=== PATIENT | female | born 1985 | race Asian ===

== ENCOUNTER 2020-03-09 15:03 | Emergency (ER) | payer OTHER ==
[~2020-03-09] VITALS: Ht 152.4 cm; Wt 47.7 kg
[~2020-03-09 15:03] MED LIST: HYDR-3164 PO; METH4TAB2 PO; NAPR-514 PO; PNV1TABL25 PO; PREN1TAB85 PO
[2020-03-09] MEDS ORDERED: ACETAMINOPHEN 500 MG TABLET PO ONE (15:45)
[2020-03-09] MEDS ORDERED: ONDANSETRON ODT 4 MG TAB.RAPDIS. PO ONE (15:45)
[2020-03-09 15:54] LABS: BASO % 0 % (0-3); EOS # 0.1 x10^3/uL (0.0-0.7); EOS % 1 % (0-3); HEMATOCRIT 36.4 % (36.0-47.0); HEMOGLOBIN 12.5 g/dL (12.0-15.5); LYMPH % 10 % (24-48); MEAN CORPUSCULAR HEMOGLOBIN 28 pg (25-35); MEAN CORPUSCULAR HGB CONC 34 g/dL (31-37); MEAN CORPUSCULAR VOLUME 81 fL (79-100); MONO # 0.3 x10^3/uL (0.0-1.1); MONO % 4 % (0-9); NEUT # 7.9 x10^3/uL (1.8-7.7); NEUT % 85 % (31-73); PLATELET COUNT 195 x10^3/uL (140-400); RED BLOOD COUNT 4.47 x10^6/uL (3.50-5.40); RED CELL DISTRIBUTION WIDTH 12.9 % (11.5-14.5); WHITE BLOOD COUNT 9.2 x10^3/uL (4.0-11.0)
[2020-03-09 15:55] LABS: BILIRUBIN,URINE SMALL (NEG); CLARITY,URINE CLEAR; NITRITE,URINE NEGATIVE (NEG); PROTEIN,URINE 100 mg/dL (NEG-TRACE)
[2020-03-09 16:11] LABS: CALCIUM 8.9 mg/dL (8.5-10.1); CREATININE 0.6 mg/dL (0.6-1.0); GFR 115.9; POTASSIUM 3.4 mmol/L (3.5-5.1)
[2020-03-09 16:17] LABS: COLOR,URINE DK YELLOW
[2020-03-09 16:18] LABS: BACTERIA,URINE MODERATE /HPF (0-FEW); SQUAMOUS EPITHELIAL CELL,UR MANY /LPF
[2020-03-09 16:18] LABS: ALBUMIN 2.9 g/dL (3.4-5.0); ALBUMIN/GLOBULIN RATIO 0.6 (1.0-1.7); TOTAL BILIRUBIN 0.2 mg/dL (0.2-1.0); TOTAL PROTEIN 7.6 g/dL (6.4-8.2)
[2020-03-09 16:21] LABS: AMPHETAMINE/METHAMPHETAMINE NEG (NEG); BARBITURATES NEG (NEG); BENZODIAZEPINES NEG (NEG); CANNABINOIDS NEG (NEG); COCAINE NEG (NEG); METHADONE NEG (NEG); OPIATES NEG (NEG); PHENCYCLIDINE NEG (NEG)
--- NOTE | 2020-03-09 16:30 | RAD ---
OB < 14 WKS History: Nausea and vomiting Comparison: None. Technique: Grayscale and color Doppler imaging of the pelvis was performed using transabdominal technique. Findings: Single intrauterine gestation. Biparietal diameter 2.43 cm. Head circumference 9.25 cm. Abdominal circumference 7.94 cm. Femur length 1.29 cm. Overall estimated gestational age by ultrasound 14 weeks 1 day. heart rate 140 bpm. There is normal movement. Breech presentation. Placenta posterior wall. Cervical length 4.8 cm. IMPRESSION: 1. Single viable uterine gestational age 14 weeks 1 day with heart rate 140 bpm. Electronically signed by: Yao Quintana DO (03/09/2020 4:28 PM) [facility]
[2020-03-09] MEDS ORDERED: ONDA4TAB12 PO (17:54)
[2020-03-09] MEDS ORDERED: ACET325T9 PO (17:54)
--- NOTE | 2020-03-09 17:54 | PHYS DOC ---
Past Medical History Past Medical History: No Pertinent History Past Surgical History: No Surgical History, Appendectomy Smoking Status: Never Smoker Alcohol Use: None Drug Use: None General Adult EDM: Chief Complaint: ABDOMINAL PAIN IN HPI: HPI: Patient is a 34 year old female 4 para 3 currently 3 months presenting to the ED today complaining of 8 out of 10 generalized abdominal pain with nausea, vomiting, subjective fever that began this morning. Patient denies any vaginal discharge, denies any concerns for STDs, denies any bleeding. Patient reports following up with her [employer] doctor Naveen galaviz OB care Policy Service Coordinator line was used for [place] Citizen Review of Systems: Review of Systems: Constitutional: Reports subjective fever Eyes: Denies change in visual acuity. [] HENT: Denies nasal congestion or sore throat. [] Respiratory: Denies cough or shortness of breath. [] Cardiovascular: Denies chest pain or edema. [] GI: Reports abdominal pain in with nausea vomiting, denies bloody stools or diarrhea. [] : Denies dysuria. [] Musculoskeletal: Denies back pain or joint pain. [] Integument: Denies rash. [] Neurologic: Denies headache, focal weakness or sensory changes. [] Psychiatric: Denies depression or anxiety. [] Heart Score: Risk Factors: Risk Factors: DM, Current or recent (<one month) smoker, HTN, HLP, family history of CAD, obesity. Risk Scores: Score 0 - 3: 2.5% MACE over next 6 weeks - Discharge Home Score 4 - 6: 20.3% MACE over next 6 weeks - Admit for Clinical Observation Score 7 - 10: 72.7% MACE over next 6 weeks - Early Invasive Strategies Current Medications: Current Medications Medications (Trade) Dose Ordered Sig/Danny Start Time Stop Time Status Last Admin Dose Admin Acetaminophen (Tylenol) 1,000 mg 1X ONCE 03/09/20 15:45 03/09/20 15:46 DC 03/09/20 15:52 1,000 MG Ondansetron HCl (Zofran Odt) 4 mg 1X ONCE 03/09/20 15:45 03/09/20 15:46 DC 03/09/20 15:51 4 MG Allergies: Allergies: Allergies Coded Allergies Type Severity Reaction Last Updated Verified No Known Drug Allergies 08/23/16 No Physical Exam: PE: Constitutional: Well developed, well nourished, no acute distress, non-toxic maryjane earance. [] HENT: Normocephalic, atraumatic, bilateral external ears normal, oropharynx moist, no oral exudates, nose normal. [] Eyes: PERRLA, EOMI, conjunctiva normal, no discharge. [] Neck: Normal range of motion, no tenderness, supple, no stridor. [] Cardiovascular:Heart rate regular rhythm, no murmur [] Lungs & Thorax: Bilateral breath sounds clear to auscultation [] Abdomen: Bowel sounds normal, soft, no tenderness, no masses, no pulsatile masses. [] Skin: Warm, dry, no erythema, no rash. [] Back: No tenderness, no CVA tenderness. [] Extremities: No tenderness, no cyanosis, no clubbing, ROM intact, no edema. [] Neurologic: Alert and oriented X 3, normal motor function, normal sensory function, no focal deficits noted. [] Psychologic: Affect normal, judgement normal, mood normal. [] Current Patient Data: Labs: Laboratory Tests Test 03/09/20 15:17 03/09/20 15:22 03/09/20 15:45 Urine Collection Type Unknown Urine Color Dk yellow Urine Clarity Clear Urine pH 6.0 (<5.0-8.0) Urine Specific [place] >=1.030 (1.000-1.030) Urine Protein 100 mg/dL (NEG-TRACE) Urine Glucose (UA) Negative mg/dL (NEG) Urine Ketones (Stick) 15 mg/dL (NEG) Urine Blood Large (NEG) Urine Nitrite Negative (NEG) Urine Bilirubin Small (NEG) Urine Urobilinogen Dipstick 1.0 mg/dL (0.2 mg/dL) Urine Leukocyte Esterase Negative (NEG) Urine RBC 11-20 /HPF (0-2) Urine WBC 1-4 /HPF (0-4) Urine Squamous Epithelial Cells Many /LPF Urine Bacteria Moderate /HPF (0-FEW) Urine Mucus Marked /LPF Urine Opiates Screen Neg (NEG) Urine Methadone Screen Neg (NEG) Urine Barbiturates Neg (NEG) Urine Phencyclidine Screen Neg (NEG) Urine Amphetamine/Methamphetamine Neg (NEG) Urine Benzodiazepines Screen Neg (NEG) Urine Cocaine Screen Neg (NEG) Urine Cannabinoids Screen Neg (NEG) Urine Ethyl Alcohol Neg (NEG) POC Urine HCG, Qualitative Hcg positive (Negative) White Blood Count 9.2 x10^3/uL (4.0-11.0) Red Blood Count 4.47 x10^6/uL (3.50-5.40) Hemoglobin 12.5 g/dL (12.0-15.5) Hematocrit 36.4 % (36.0-47.0) Mean Corpuscular Volume 81 fL (79-100) Mean Corpuscular Hemoglobin 28 pg (25-35) Mean Corpuscular Hemoglobin Concent 34 g/dL (31-37) Red Cell Distribution Width 12.9 % (11.5-14.5) Platelet Count 195 x10^3/uL (140-400) Neutrophils (%) (Auto) 85 % (31-73) H Lymphocytes (%) (Auto) 10 % (24-48) L Monocytes (%) (Auto) 4 % (0-9) Eosinophils (%) (Auto) 1 % (0-3) Basophils (%) (Auto) 0 % (0-3) Neutrophils # (Auto) 7.9 x10^3/uL (1.8-7.7) H Lymphocytes # (Auto) 1.0 x10^3/uL (1.0-4.8) Monocytes # (Auto) 0.3 x10^3/uL (0.0-1.1) Eosinophils # (Auto) 0.1 x10^3/uL (0.0-0.7) Basophils # (Auto) 0.0 x10^3/uL (0.0-0.2) Maternal Serum HCG Beta Subunit 39929 mIU/mL (0-5) H Sodium Level 137 mmol/L (136-145) Potassium Level 3.4 mmol/L (3.5-5.1) L Chloride Level 101 mmol/L (98-107) Carbon Dioxide Level 27 mmol/L (21-32) Anion Gap 9 (6-14) Blood Urea Nitrogen 9 mg/dL (7-20) Creatinine 0.6 mg/dL (0.6-1.0) Estimated GFR (Cockcroft-Gault) 115.9 BUN/Creatinine Ratio 15 (6-20) Glucose Level 90 mg/dL (70-99) Calcium Level 8.9 mg/dL (8.5-10.1) Total Bilirubin 0.2 mg/dL (0.2-1.0) Aspartate Amino Transferase (AST) 15 U/L (15-37) Alanine Aminotransferase (ALT) 7 U/L (14-59) L Alkaline Phosphatase 64 U/L (46-116) Total Protein 7.6 g/dL (6.4-8.2) Albumin 2.9 g/dL (3.4-5.0) L Albumin/Globulin Ratio 0.6 (1.0-1.7) L Ethyl Alcohol Level < 10 mg/dL (0-10) Laboratory Tests 03/09/20 15:45 Laboratory Tests 03/09/20 15:45 Vital Signs: Vital Signs Date Time Temp Pulse Resp B/P (MAP) Pulse Ox O2 Delivery O2 Flow Rate FiO2 03/09/20 15:53 97.9 77 18 108/56 (73) 98 Room Air 97.9 EKG: EKG: [] Radiology/Procedures: Radiology/Procedures: []PROCEDURE: OB < 14 WKS OB < 14 WKS History: Nausea and vomiting Comparison: None. Technique: Grayscale and color Doppler imaging of the pelvis was performed using transabdominal technique. Findings: Single intrauterine gestation. Biparietal diameter 2.43 cm. Head circumference 9.25 cm. Abdominal circumference 7.94 cm. Femur length 1.29 cm. Overall estimated gestational age by ultrasound 14 weeks 1 day. heart rate 140 bpm. There is normal movement. Breech presentation. Placenta posterior wall. Cervical length 4.8 cm. IMPRESSION: 1. Single viable uterine gestational age 14 weeks 1 day with heart rate 140 bpm. Electronically signed by: Yao Quintana DO (03/09/2020 4:28 PM) [facility] DICTATED and SIGNED BY: YAO QUINTANA DO DATE: 03/09/20 6391 Course & Med Decision Making: Course & Med Decision Making Pertinent Labs and Imaging studies reviewed. (See chart for details) This is a 34-year-old female patient presenting to the ED today with abdominal pain in as well as nausea vomiting and subjective fever. Patient is afebrile in the ED. CBC, CMP with no acute findings, urine with no nitrates or leukocytes and appears grossly contaminated. OB ultrasound- single viable uterine gestational age 14 weeks 1 day with heart rate 140 bpm. Patient was discharged to home, follow-up with OB in the course of this week. Provided return precautions. Policy Service Coordinator line used for Ana Love Disclaimer: Ivan Disclaimer: This electronic medical record was generated, in whole or in part, using a voice recognition dictation system. Departure Departure Impression: Primary Impression: Abdominal pain during Qualified Codes: O26.892 - Other specified related conditions, second trimester; R10.9 - Unspecified abdominal pain Additional Impression: Nausea and vomiting during Disposition: 01 HOME, SELF-CARE Condition: STABLE Referrals: NO PCP (PCP) SUSHIL MAYER Jr, MD follow up this week Patient Instructions: Abdominal Pain During , [id number], Nausea and Vomiting, [id number] Additional Instructions: You were evaluated in the emergency room, your baby is doing okay at 14 weeks and 1 day. Take the prescribed medications as ordered. Prescriptions were sent to [facility] on [address] count includes the [facility]. Follow-up with in the course of this week Scripts Acetaminophen (TYLENOL) 325 Mg Tablet 1-2 TAB PO QID, #60 TAB 0 Refills Prov: ASIF ARMSTRONG APRN 03/09/20 Ondansetron (ONDANSETRON ODT) 4 Mg Tab.rapdis 1 TAB PO PRN Q6-8HRS, #16 TAB Prov: ASIF ARMSTRONG APRN 03/09/20 ASIF ARMSTRONG APRN March 09, 2020 17:54
[2020-03-09 18:00] VITALS: BP 106/61
== END 2020-03-09 18:08 | disposition home or self-care (01) ==
LOC: ER 15:03
DX: O21.9 Vomiting of pregnancy, unspecified (principal); R10.84 Generalized abdominal pain; R50.9 Fever, unspecified; O32.1XX0 Maternal care for breech presentation, not applicable or unspecified; Z90.89 Acquired absence of other organs; Z3A.14 14 weeks gestation of pregnancy
CPT/HCPCS: 36415; 76801; 80053; 80307; 81001; 81025; 84702; 85025; 87086; 99284; G0480; Q0162

== ENCOUNTER → 2020-04-30 | Outpatient (CLI) | payer OTHER ==
[~2020-04-30] MED LIST changes: +ACET325T9 PO; +ONDA4TAB12 PO
--- NOTE | 2020-04-30 16:44 | RAD ---
EXAM: Obstetrics sonogram. HISTORY: Size and dates assessment. TECHNIQUE: Sonographic imaging of a gravid uterus was performed. COMPARISON: 03/09/2020. FINDINGS: There is a single uterine fetus in variable presentation with a normal heart rate of 152 bpm. There is a posterior placenta without evidence of placenta previa. The amniotic fluid index is normal at 14.6 cm. The cervix is closed and measures 4.3 cm in length. There is normal body motion. The stomach, kidneys, bladder, spine, brain, facial profile, extremities and heart are unremarkable. There is a three-vessel umbilical cord with normal insertion. The biparietal diameter is 4.75 cm, corresponding with 20 weeks and 3 days. The head circumference is 18.24 cm, corresponding with 20 weeks and 4 days. The abdominal circumference is 15.76 cm, corresponding with 20 weeks and 6 days. The femoral length is 3.30 cm, corresponding with 20 weeks and 2 days. The estimated gestational age patient combined ultrasound measurements is 20 weeks and 4 days and the estimated weight is 366 g. The estimated due date is 09/13/2020. IMPRESSION: Single intrauterine fetus with normal heart rate and gestational age based on ultrasound measurements is 20 weeks and 4 days. The gestational age based on LMP is 21 weeks and 6 days. Electronically signed by: Kelly Arvizu MD (04/30/2020 4:41 PM) [id number]
== END | disposition home or self-care (01) ==
LOC: US 15:30
PROVIDERS: ATTEND Obstetrics & Gynecology
DX: O26.842 Uterine size-date discrepancy, second trimester (principal); Z3A.20 20 weeks gestation of pregnancy
CPT/HCPCS: 76805

== ENCOUNTER 2020-08-24 00:16 | Inpatient (IN) | payer OTHER ==
[~2020-08-24] VITALS: Ht 147.3 cm; Wt 56.4 kg
[2020-08-24 00:42] LABS: BILIRUBIN,URINE NEGATIVE (NEG); CLARITY,URINE CLEAR; COLOR,URINE YELLOW; NITRITE,URINE NEGATIVE (NEG); PROTEIN,URINE NEGATIVE (NEG-TRACE); UROBILINOGEN,URINE 0.2 mg/dL (0.2 mg/dL)
[2020-08-24] MEDS ORDERED: fentaNYL PF VIAL 100 MCG/2 ML VIAL IVP PRN (00:45)
[2020-08-24] MEDS ORDERED: TERBUTALINE 1 MG/ML VIAL. SQ PRN (00:45)
[2020-08-24] MEDS ORDERED: OXYTOCIN 30 UNIT/500 ML PREMIX 500 ML IV PRN ×2 (00:45→03:00)
[2020-08-24] MEDS ORDERED: 0.9 % SODIUM CHLORIDE 10 ML DISP.SYRIN. IV PRN ×2 (00:45→03:00)
[2020-08-24] MEDS ORDERED: ACETAMINOPHEN 325 MG TABLET. PO PRN (00:45)
[2020-08-24] MEDS ORDERED: MAG HYDROX/ALUMINUM HYD/SIMETH 30 ML ORAL.SUSP PO PRN ×2 (00:45→03:00)
[2020-08-24] MEDS ORDERED: CITRIC ACID/SODIUM CITRATE 30 ML SOLUTION. PO PRN (00:45)
[2020-08-24] MEDS ORDERED: ONDANSETRON PF 4 MG/2 ML VIAL. IVP PRN (00:45)
[2020-08-24 00:49] LABS: BACTERIA,URINE FEW /HPF (0-FEW); RBC,URINE 0 /HPF (0-2); WBC,URINE OCC /HPF (0-4)
[2020-08-24] MEDS ORDERED: IV RINGERS,LACTATED 1000ML 1,000 ML IV SCH (01:00)
[2020-08-24] MEDS ORDERED: PENICILLIN G K 5,000,000 UNIT in IV DEXTROSE 5% 100ML 100 ML IV ONE (01:00)
[2020-08-24] MEDS ORDERED: LIDOCAINE 1% PF 30 ML VIAL. INJ PRN (01:00)
--- NOTE | 2020-08-24 01:10 | PDOC1 ---
OB - History Hx of Present Care: Good Care Ultrasounds: Normal mid trimester US Obstetrical Complications: None Medical Complications: None Past Family/Social History * Past Medical, Surgical, Family and Obstetric Histories reviewed from chart. Blood Type: A+ Rubella: Immune RPR/VDRL: Negative GBS Status: Negative HBsAG: Negative OB - Chief Complaint & HPI Date of Admission: Date of Admission: Aug 24, 2020 at 00:16 Chief Complaint/History : 4 Para: 3 EGA: 38 Reason for admission: active labor Admission Nurse Assessment Rev: Yes OB - Admission Exam Physical Exam HEENT: Normal Heart: Regular Rate Lungs: Clear, Equal Abdomen: Gravid, Non tender, Soft Extremities: Edema Reflexes: Normal Cervical Dilatation: 8cm Effacement: 100% Station: -2 Membranes: Intact Accelerations: Accelerations Present Decelerations: No decelerations Contractions on Admission: < 5 Minutes Apart Intensity: Firm Text A: 38 wks IUP Active labor P: Admit labor management. SUSHIL MAYER Jr, MD Aug 24, 2020 01:10
[2020-08-24 01:39] LABS: BASO % 0 % (0-3); EOS # 0.2 x10^3/uL (0.0-0.7); EOS % 2 % (0-3); HEMOGLOBIN 11.1 g/dL (12.0-15.5); LYMPH # 1.9 x10^3/uL (1.0-4.8); LYMPH % 21 % (24-48); MEAN CORPUSCULAR HEMOGLOBIN 27 pg (25-35); MEAN CORPUSCULAR HGB CONC 34 g/dL (31-37); MEAN CORPUSCULAR VOLUME 80 fL (79-100); MONO # 0.6 x10^3/uL (0.0-1.1); MONO % 7 % (0-9); NEUT # 6.3 x10^3/uL (1.8-7.7); NEUT % 70 % (31-73); PLATELET COUNT 216 x10^3/uL (140-400); RED BLOOD COUNT 4.11 x10^6/uL (3.50-5.40); RED CELL DISTRIBUTION WIDTH 13.9 % (11.5-14.5); WHITE BLOOD COUNT 8.9 x10^3/uL (4.0-11.0)
--- NOTE | 2020-08-24 02:49 | PDOC ---
VAGINAL DELIVERY DATE DATE: 08/24/20 TIME: 02:48 : 4 Para: 4 EGA: 38 VAGINAL DELIVERY: VTX VACCUM ASSISTED: No PLACENTA: Spontaneous 8/9 SEX: Male WEIGHT Weight [ 7 lbs 4 oz ] Nuchal Cord: No Amniotic Fluid: Clear PAIN: Natural EPISIOTOMY: No EXTENSION: Yes (1st degree midline laceration) REPAIRED WITH 2-0 vicryl EBL 300 ml COMPLICATIONS none CONDITION pt. stable Signs of Intrauterine Infectio: None Shoulder Dystocia: No SUSHIL MAYER Jr, MD Aug 24, 2020 02:49
[2020-08-24] MEDS ORDERED: PHENYLEPH/MINERAL OIL/PETROLAT RECTAL OINTMENT TUBE. RC PRN (03:00)
[2020-08-24] MEDS ORDERED: MAGNESIUM HYDROXIDE 2,400 MG/30 ML ORAL.SUSP. PO PRN (03:00)
[2020-08-24] MEDS ORDERED: TDaP (Adacel) per PROTOCOL. MC PRN (03:00)
[2020-08-24] MEDS ORDERED: HYDROCORTISONE 1% TOPICAL OINTMENT 30GM TUBE. TP PRN (03:00)
[2020-08-24] MEDS ORDERED: ZOLPIDEM 5 MG TABLET. PO PRN (03:00)
[2020-08-24] MEDS ORDERED: DOCUSATE SODIUM 100 MG CAPSULE. PO PRN (03:00)
[2020-08-24] MEDS ORDERED: IBUPROFEN 400 MG TABLET. PO PRN (03:00)
[2020-08-24] MEDS ORDERED: MMR per PROTOCOL. MC PRN (03:00)
[2020-08-24] MEDS ORDERED: diphenhydrAMINE HCL 25 MG CAPSULE PO PRN (03:00)
[2020-08-24] MEDS ORDERED: oxyCODONE/APAP 5/325 1 TAB TABLET PO PRN (03:00)
[2020-08-24] MEDS ORDERED: SIMETHICONE 80 MG TAB.CHEW PO PRN (03:00)
[2020-08-24] MEDS: IBUPROFEN 400 MG TABLET. PO PRN ×2 (04:56→15:20)
[2020-08-24] MEDS: BENZOCAINE 20% TOPICAL AEROSOL SPRAY 57GM CAN. TP PRN (04:56)
[2020-08-24] MEDS ORDERED: PENICILLIN G K 2,500,000 UNIT in IV DEXTROSE 5% 50 ML IV SCH (05:00)
[2020-08-24 05:42] VITALS: BP 107/56
[2020-08-24] MEDS: MULTIVITAMIN with MINERAL TABLET. PO SCH ×2 (09:41→09:42)
[2020-08-24 15:53] VITALS: BP 94/57
[2020-08-24] MEDS: ACETAMINOPHEN 325 MG TABLET. PO PRN (20:36)
[2020-08-24 21:51] VITALS: BP 104/43
[2020-08-25] MEDS: ACETAMINOPHEN 325 MG TABLET. PO PRN (05:47)
[2020-08-25] MEDS: IBUPROFEN 400 MG TABLET. PO PRN (05:47)
[2020-08-25 06:07] VITALS: BP 98/53
[2020-08-25] MEDS ORDERED: FERROUS SULFATE 325 MG TABLET. PO SCH (08:00)
--- NOTE | 2020-08-25 08:31 | PDOC ---
OB Progress Note Date of Service 08/25/20 Time of Evaluation 0830 Notes Pt. feeling well. No complaints. Lab Laboratory Tests Test 08/24/20 00:20 08/24/20 00:55 08/24/20 00:58 08/24/20 01:00 Urine Collection Type Unknown Urine Color Yellow Urine Clarity Clear Urine pH 7.0 (<5.0-8.0) Urine Specific [place] 1.010 (1.000-1.030) Urine Protein Negative mg/dL (NEG-TRACE) Urine Glucose (UA) Negative mg/dL (NEG) Urine Ketones (Stick) Negative mg/dL (NEG) Urine Blood Trace (NEG) Urine Nitrite Negative (NEG) Urine Bilirubin Negative (NEG) Urine Urobilinogen Dipstick 0.2 mg/dL (0.2 mg/dL) Urine Leukocyte Esterase Negative (NEG) Urine RBC 0 /HPF (0-2) Urine WBC Occ /HPF (0-4) Urine Squamous Epithelial Cells Mod /LPF Urine Bacteria Few /HPF (0-FEW) Urine Mucus Slight /LPF Treponema pallidum Antibody Nonreactive (Nonreactive) Coronavirus (PCR) Not detected (Not Detected) SARS-CoV-2 Antigen (Rapid) Negative (NEGATIVE) White Blood Count 8.9 x10^3/uL (4.0-11.0) Red Blood Count 4.11 x10^6/uL (3.50-5.40) Hemoglobin 11.1 g/dL (12.0-15.5) Hematocrit 33.0 % (36.0-47.0) Mean Corpuscular Volume 80 fL (79-100) Mean Corpuscular Hemoglobin 27 pg (25-35) Mean Corpuscular Hemoglobin Concent 34 g/dL (31-37) Red Cell Distribution Width 13.9 % (11.5-14.5) Platelet Count 216 x10^3/uL (140-400) Neutrophils (%) (Auto) 70 % (31-73) Lymphocytes (%) (Auto) 21 % (24-48) Monocytes (%) (Auto) 7 % (0-9) Eosinophils (%) (Auto) 2 % (0-3) Basophils (%) (Auto) 0 % (0-3) Neutrophils # (Auto) 6.3 x10^3/uL (1.8-7.7) Lymphocytes # (Auto) 1.9 x10^3/uL (1.0-4.8) Monocytes # (Auto) 0.6 x10^3/uL (0.0-1.1) Eosinophils # (Auto) 0.2 x10^3/uL (0.0-0.7) Basophils # (Auto) 0.0 x10^3/uL (0.0-0.2) Medications Current Medications Sodium Chloride (Normal Saline Flush) 3 ml QSHIFT PRN IV AFTER MEDS AND BLOOD DRAWS; Start 08/24/20 at 00:45; Stop 08/24/20 at 15:14; Status DC Ringer's Solution 1,000 ml @ 125 mls/hr Q8H IV Last administered on 08/24/20at 03:03; Start 08/24/20 at 01:00; Stop 08/24/20 at 15:14; Status DC Fentanyl Citrate (Fentanyl 2ml Vial) 100 mcg PRN Q10MIN PRN IVP Labor pain; Start 08/24/20 at 00:45; Stop 08/24/20 at 15:14; Status DC Acetaminophen (Tylenol) 650 mg PRN Q6HRS PRN PO MILD PAIN / TEMP > 100.3'F Last administered on 08/24/20at 09:41; Start 08/24/20 at 00:45; Stop 08/24/20 at 10:07; Status DC Ondansetron HCl (Zofran) 4 mg PRN Q4HRS PRN IVP NAUSEA/VOMITING; Start 08/24/20 at 00:45; Stop 08/24/20 at 15:14; Status DC Al Hydroxide/Mg Hydroxide (Mylanta Plus Xs) 30 ml PRN Q4HRS PRN PO HEARTBURN / GAS; Start 08/24/20 at 00:45; Status Cancel Citric Acid/ Sodium Citrate (Bicitra) 30 ml 1X PRN PRN PO DYSPEPSIA; Start 08/24/20 at 00:45; Stop 08/24/20 at 15:14; Status DC Terbutaline Sulfate (Brethine) 0.25 mg 1X PRN PRN SQ SEE COMMENTS; Start 08/24/20 at 00:45; Stop 08/24/20 at 15:14; Status DC Lidocaine HCl (Xylocaine 1% Pf 30ml Vial) 30 ml 1X PRN PRN INJ SEE COMMENTS Last administered on 08/24/20at 03:03; Start 08/24/20 at 01:00; Stop 08/24/20 at 15:14; Status DC Oxytocin/Sodium Chloride 500 ml @ 0 mls/hr CONT PRN PRN IV Post delivery bleeding Last administered on 08/24/20at 03:02; Start 08/24/20 at 00:45; Stop 08/24/20 at 15:14; Status DC Ibuprofen (Motrin) 800 mg PRN Q6HRS PRN PO PAIN Last administered on 08/25/20at 05:47; Start 08/24/20 at 00:45 Penicillin G Potassium 0953485 unit/Dextrose 100 ml @ 100 mls/hr 1X ONCE IV ; Start 08/24/20 at 01:00; Stop 08/24/20 at 01:32; Status DC Penicillin G Potassium [id number] unit/Dextrose 50 ml @ 100 mls/hr Q4H IV ; Start 08/24/20 at 05:00; Stop 08/24/20 at 01:32; Status DC Sodium Chloride (Normal Saline Flush) 10 ml QSHIFT PRN IV AFTER MEDS AND BLOOD DRAWS; Start 08/24/20 at 03:00; Stop 08/24/20 at 15:14; Status DC Oxytocin/Sodium Chloride 500 ml @ 62.5 mls/hr CONT PRN IV SEE I/O RECORD; St art 08/24/20 at 03:00; Stop 08/24/20 at 10:59; Status DC Acetaminophen (Tylenol) 650 mg PRN Q6HRS PRN PO MILD PAIN / TEMP > 100.3'F Last administered on 08/25/20at 05:47; Start 08/24/20 at 03:00 Ibuprofen (Motrin) 800 mg PRN Q8HRS PRN PO INFLAMMATION/PAIN PREVENTION; Start 08/24/20 at 03:00 Docusate Sodium (Colace) 100 mg PRN BID PRN PO HARD STOOL Last administered on 08/24/20at 20:36; Start 08/24/20 at 03:00 Magnesium Hydroxide (Milk Of Magnesia) 2,400 mg PRN DAILY PRN PO CONSTIPATION; Start 08/24/20 at 03:00; Stop 08/24/20 at 15:14; Status DC Al Hydroxide/Mg Hydroxide (Mylanta Plus Xs) 30 ml PRN Q4HRS PRN PO HEARTBURN / GAS; Start 08/24/20 at 03:00 Simethicone (Gas-X) 80 mg PRN AFTMEALHC PRN PO GAS / BLOATING; Start 08/24/20 at 03:00 Diphenhydramine HCl (Benadryl) 25 mg PRN Q6HRS PRN PO ITCHING; Start 08/24/20 at 03:00 Benzocaine (Americaine) 1 spray PRN QID PRN TP TOPICAL PAIN Last administered on 08/24/20at 04:56; Start 08/24/20 at 03:00 Phenyleph/Shark Oil/Min Oil/Petrol (Preparation H) 1 maryjane PRN QID PRN RC RECTAL PAIN; Start 08/24/20 at 03:00 Hydrocortisone (Cortaid) 1 maryjane PRN QID PRN TP PERINEAL PAIN; Start 08/24/20 at 03:00 Ferrous Sulfate (Feosol) 325 mg BIDWMEALS PO Last administered on 08/24/20at 09:42; Start 08/25/20 at 08:00 Zolpidem Tartrate (Ambien) 5 mg PRN QHS PRN PO INSOMNIA, MAY REPEAT X1; Start 08/24/20 at 03:00 Info (Do NOT chart on this placeholder) 1 ea 1X PRN PRN MC SEE COMMENTS; Start 08/24/20 at 03:00 Info (Do NOT chart on this placeholder) 1 ea 1X PRN PRN MC SEE COMMENTS; Start 08/24/20 at 03:00; Stop 08/24/20 at 15:14; Status DC Oxycodone/ Acetaminophen (Percocet 5/325) 2 tab PRN Q4HRS PRN PO MODERATE PAIN, SEVERE PAIN; Start 08/24/20 at 03:00 Multivitamins (Thera M Plus) 1 tab DAILY PO Last administered on 08/24/20at 09: 42; Start 08/24/20 at 09:00 Active Scripts Active Tylenol (Acetaminophen) 325 Mg Tablet 1-2 Tab PO QID Ondansetron Odt (Ondansetron) 4 Mg Tab.rapdis 1 Tab PO PRN Q6-8HRS [place] 5-325 Tablet (Acetaminophen/Hydrocodone Bitart) 1 Each Tablet 1 Tab PO PRN Q6HRS PRN Naproxen 500 Mg Tablet 500 Mg PO BID Naproxen 500 Mg Tablet 1 Tab PO BID [place] 5-325 Tablet (Acetaminophen/Hydrocodone Bitart) 1 Each Tablet 1 Tab PO PRN Q6HRS PRN Medrol (Methylprednisolone) 4 Mg Tab.ds.pk 1 Pkg PO UD Reported Formula Tablet ( Vits #93/Iron Fum/Fa) 1 Each Tablet 1 Each PO Tablet (Pnv Cmb#95/Ferrous Fumarate/Fa) 1 Each Tablet 1 Tab PO DAILY Exam Abd: soft, non tender, fundus firm Assessment PPD#1 s/p Plan of Care: Continue current Tx, Mgmt SUSHIL MAYER Jr, MD Aug 25, 2020 08:31
[2020-08-25 08:36] LABS: BASO % 0 % (0-3); EOS # 0.1 x10^3/uL (0.0-0.7); EOS % 1 % (0-3); HEMATOCRIT 29.8 % (36.0-47.0); LYMPH % 20 % (24-48); MEAN CORPUSCULAR HEMOGLOBIN 27 pg (25-35); MEAN CORPUSCULAR HGB CONC 34 g/dL (31-37); MEAN CORPUSCULAR VOLUME 81 fL (79-100); MONO # 0.5 x10^3/uL (0.0-1.1); MONO % 5 % (0-9); NEUT # 7.7 x10^3/uL (1.8-7.7); NEUT % 74 % (31-73); PLATELET COUNT 154 x10^3/uL (140-400); RED BLOOD COUNT 3.68 x10^6/uL (3.50-5.40); RED CELL DISTRIBUTION WIDTH 14.2 % (11.5-14.5); WHITE BLOOD COUNT 10.3 x10^3/uL (4.0-11.0)
[2020-08-25 12:30] VITALS: BP 102/59
[2020-08-25 15:50] VITALS: BP 107/51
[2020-08-25] MEDS: BENZOCAINE 20% TOPICAL AEROSOL SPRAY 57GM CAN. TP PRN (15:53)
== END 2020-08-25 15:50 | disposition home or self-care (01) | DRG 807 ==
LOC: 3 SO LND 00:16 → OBSVTOIN 00:42 → 3 NORTH 05:09
PROVIDERS: ADMIT Obstetrics & Gynecology; ATTEND Obstetrics & Gynecology
PROC: 10E0XZZ Delivery of Products of Conception, External Approach (ICD-10-PCS; principal; 2020-08-24)
PROC: 0HQ9XZZ Repair Perineum Skin, External Approach (ICD-10-PCS; 2020-08-24)
DX: O70.0 First degree perineal laceration during delivery (principal); Z37.0 Single live birth; Z3A.38 38 weeks gestation of pregnancy; Z20.828 Contact with and (suspected) exposure to other viral communicable diseases
CPT/HCPCS: 36415; 81001; 85025; 86592; 86850; 86900; 86901; 87426; G0379; J2590; J3490; J7120; U0003; G0378